=== PATIENT | female | born 1990 | race Caucasian/White ===

== ENCOUNTER 2019-05-07 08:35 | Emergency (ER) | payer MEDICAID ==
[~2019-05-07] VITALS: Ht 175.3 cm; Wt 74.8 kg
--- NOTE | 2019-05-07 08:40 | NUR ---
Patient ambulated with stable gait. A/Ox4. Speech is clear, speaks in complete sentences. No acute neuro deficits. Patient came for c/o lower abd pain since 0830 this AM. Patient states that she is 8 months ; G1 T0 L0. Last known menstrual 09/2018. Respiratory even and unlabored, no cough no sob no use of accessory mucles. No cardiovascular distress noted, all pulses palpable, denies any cp. No n/v/d. Patient in bed at lowest position, sr upx2, call light within reach. Fall precautions implemented per protocol.
--- NOTE | 2019-05-07 08:44 | NUR ---
Female skein mercerizing machine operator accompanied female patient for (dr baker ).
--- NOTE | 2019-05-07 09:40 | NUR ---
Report given to PAUL Hines
--- NOTE | 2019-05-07 09:45 | NUR ---
Patient transported to [facility] in stable condition.
[2019-05-07 09:46] LABS: *BILIRUBIN,URIN NEGATIVE (NEGATIVE); *BLOOD, URINE NEGATIVE (NEGATIVE); *COLOR,URINE YELLOW (YELLOW); *KETONES,URINE NEGATIVE (NEGATIVE); *UROBILINOGEN,URINE 0.2 E.U./dl (NORMAL); LEUKOCYTE ESTERASE ,URINE NEGATIVE (NEGATIVE); NITRITE, URINE POSITIVE (NEGATIVE); PH,URINE 5.5 (5.0-8.0); UGLUCOSE NEGATIVE (NEGATIVE)
[2019-05-07 09:49] LABS: *CLARITY,URINE HAZY (CLEAR)
[2019-05-07 09:54] LABS: BACTERIA,URINE MANY /HPF (NONE SEEN); RBC,URINE 0-3 /HPF (0-3); WBC,URINE 0-3 /HPF (0-3)
[2019-05-07 09:55] LABS: SQUAMOUS EPITHELIAL CELL,UR FEW /HPF (NONE SEEN)
== END 2019-05-07 09:59 | disposition short-term general hospital (02) ==
LOC: ER 08:35
DX: O26.893 Other specified pregnancy related conditions, third trimester (principal); R10.9 Unspecified abdominal pain; Z3A.34 34 weeks gestation of pregnancy
CPT/HCPCS: 87077; 87086; A4663